=== PATIENT | male | born 1960 | race Caucasian/White ===

== ENCOUNTER 2016-03-11 10:03 | Observation (INO) | payer SELFPAY ==
[~2016-03-11] VITALS: Ht 175.3 cm; Wt 70.7 kg
[2016-03-11] MEDS ORDERED: DUONEB INH ONE ×2 (10:57→10:58)
[2016-03-11] MEDS ORDERED: METHYLPRED SOD SUCC 125 MG/2 ML VIAL ONE (11:07)
[2016-03-11] MEDS ORDERED: Furosemide 40 MG/4 ML VIAL ONE (12:00)
[2016-03-11] MEDS ORDERED: SALINE FLUSH 10 ML FLUSH PRN (12:45)
[2016-03-11] MEDS ORDERED: PHARMACY TO DOSE LEVAQUIN IV SCH (12:45)
[2016-03-11] MEDS: DUONEB INH SCH ×4 (12:55→23:00)
[2016-03-11] MEDS ORDERED: DEXTROSE 50% SYRINGE 50 ML IV PRN (12:55)
[2016-03-11] MEDS ORDERED: GLUCAGON 1 MG VIAL IM PRN (12:55)
[2016-03-11] MEDS ORDERED: LEVEMIR INSULIN SUBQ ONE (14:30)
[2016-03-11] MEDS: LEVEMIR INSULIN SUBQ SCH ×2 (14:33→21:53)
[2016-03-11] MEDS ORDERED: **NOTE TO NURSE**PLEASE ENTER HT AND WT FOR ANTIBIOTIC DOSING XX SCH (14:50)
[2016-03-11 15:09] VITALS: BP_SYST 119; RESP 16; TEMP 98.6
[2016-03-11 16:37] VITALS: Ht 175.3 cm; Wt 70.7 kg
[2016-03-11 16:39] VITALS: BP_SYST 115; RESP 20; TEMP 98.3
[2016-03-11] MEDS: ENOXAPARIN 40 MG/0.4 ML SYR SUBQ SCH (16:41)
[2016-03-11] MEDS: NICOTINE 14 MG/24 HR TDSY TRANSDERM SCH (16:43)
[2016-03-11] MEDS: CLOPIDOGREL 75 MG TAB PO SCH (16:43)
[2016-03-11] MEDS: Carvedilol 3.125 MG TAB PO SCH ×2 (16:44→21:12)
[2016-03-11] MEDS: PREDNISONE 20 MG TAB PO SCH (16:44)
[2016-03-11] MEDS: GUAIFENESIN ER 600 MG TABCR PO SCH ×2 (16:44→21:12)
[2016-03-11] MEDS: LISINOPRIL 2.5 MG TAB PO SCH (16:45)
[2016-03-11] MEDS: ASPIRIN EC 81 MG TAB PO SCH (16:47)
[2016-03-11] MEDS ORDERED: LEVOFLOXACIN 750 MG/150 ML 150 ML IV SCH (16:55)
[2016-03-11 17:01] VITALS: RESP 20
[2016-03-11] MEDS ORDERED: TEMAZEPAM 7.5 MG CAP PO PRN (17:45)
[2016-03-11 19:13] VITALS: BP_SYST 91; RESP 18; TEMP 98.3
[2016-03-11] MEDS ORDERED: Furosemide 20 MG/2 ML VIAL IV ONE (21:00)
[2016-03-11] MEDS ORDERED: Atorvastatin 40 MG TAB PO SCH (21:00)
[2016-03-11] MEDS ORDERED: MISSING DOSE XX ONE (21:05)
[2016-03-11] MEDS: SALINE FLUSH 10 ML FLUSH SCH (21:12)
[2016-03-11 22:14] VITALS: BP_SYST 100; RESP 20; TEMP 97.8
[2016-03-12] VITALS (7 sets, daily range): BP systolic 106–110; RESP 18; TEMP 98–98.4
[2016-03-12] MEDS: DUONEB INH SCH ×3 (02:56→11:00)
[2016-03-12] MEDS ORDERED: SODIUM CHLORIDE 0.9% FLUSH BAG 500 ML IV SCH (06:00)
[2016-03-12] MEDS: LEVEMIR INSULIN SUBQ SCH (08:26)
[2016-03-12] MEDS ORDERED: AZITHROMYCIN 500 MG in SODIUM CHLORIDE 0.9% 250 ML IV SCH (09:00)
[2016-03-12] MEDS ORDERED: AZITHROMYCIN 250 MG TAB PO SCH (09:00)
[2016-03-12] MEDS: LEVOFLOXACIN 750 MG TAB PO SCH ×2 (09:00→11:52)
[2016-03-12] MEDS ORDERED: Furosemide 20 MG TAB PO SCH (09:00)
[2016-03-12] MEDS: SALINE FLUSH 10 ML FLUSH SCH (09:10)
[2016-03-12] MEDS: ENOXAPARIN 40 MG/0.4 ML SYR SUBQ SCH (09:11)
[2016-03-12] MEDS: LISINOPRIL 2.5 MG TAB PO SCH (09:12)
[2016-03-12] MEDS: NICOTINE 14 MG/24 HR TDSY TRANSDERM SCH (09:12)
[2016-03-12] MEDS: CLOPIDOGREL 75 MG TAB PO SCH (09:12)
[2016-03-12] MEDS: GUAIFENESIN ER 600 MG TABCR PO SCH (09:12)
[2016-03-12] MEDS: PREDNISONE 20 MG TAB PO SCH (09:13)
[2016-03-12] MEDS: Carvedilol 3.125 MG TAB PO SCH (09:13)
[2016-03-12] MEDS: ASPIRIN EC 81 MG TAB PO SCH (09:13)
== END 2016-03-12 08:53 | disposition home or self-care (01) ==
LOC: ENRESERVDT → ENRESERVTM → ER 10:03 → EMR 12:43 → ENPENDDIS 12:43 → 4NT 16:11
PROVIDERS: ADMIT Internal Medicine; ATTEND Internal Medicine
CPT/HCPCS: 71010; 80048; 80053; 82553; 82947; 83036; 83605; 83690; 83735; 83880; 84484; 85025; 87040; 87278; 87299; 87804; 93005; 94640; 94799; 96374; 96375; 99223